=== PATIENT | male | born 2000 | race Caucasian/White ===

== ENCOUNTER 2021-04-29 20:17 | Emergency (ER) | payer OTHER, SELFPAY ==
[2021-04-29 20:19] VITALS: BP 120/55; PULSE 64; RESP 16; TEMP 36.3; O2SAT 98; BMI 22.9
== END 2021-04-29 21:28 | disposition left against medical advice (07) ==
PROVIDERS: Emergency Provider Emergency Medicine
DX: L50.9 Urticaria, unspecified (principal)
CPT/HCPCS: 99282